=== PATIENT | female | born 1960 | race Caucasian/White ===

== ENCOUNTER → 2020-07-12 | Outpatient (CLI) | payer BC, OTHER ==
[~2020-07-12] MED LIST: PERCOCET 5-3251 EACH PO; XARELTO 10 MG T10 MG PO
== END ==
LOC: HEART 5 06-14 14:00
DX: R00.2 Palpitations (principal); I49.3 Ventricular premature depolarization; I49.1 Atrial premature depolarization

== ENCOUNTER → 2020-07-18 | Outpatient (CLI) | payer BC, OTHER | LOC: HEART 5 07-05 14:30 | DX: R07.9 Chest pain, unspecified (principal); R00.2 Palpitations; I34.0 Nonrheumatic mitral (valve) insufficiency | CPT/HCPCS: 93306 ==